=== PATIENT | male | born 1965 | race Caucasian/White ===

== ENCOUNTER 2021-10-05 11:35 | Outpatient (CLI) | payer BC, SELFPAY ==
[2021-10-05 17:25] LABS: Albumin* 4.4 g/dL (3.3-5.0); Chloride* 105 mmol/L (96-114)
[2021-10-05 17:26] LABS: Potassium* 4.2 mmol/L (3.6-5.1); Sodium* 138 mmol/L (135-149)
[2021-10-05 17:28] LABS: Cholesterol* 184 mg/dL (90-199); Creatinine* 0.9 mg/dL (0.5-1.5); Estimated Glomerular Filt Rate 100.86
[2021-10-05 17:29] LABS: Alanine Aminotransferase* 61 U/L (4-50); Alkaline Phosphatase* 103 U/L (40-150); Aspartate Amino Transferase* 53 U/L (12-35); Blood Urea Nitrogen* 20 mg/dL (7-30); Calcium* 8.9 mg/dL (8.4-10.6); Carbon Dioxide* 25 mmol/L (20-32); Glucose* 114 mg/dL (60-115); HDL Cholesterol* 41 mg/dL (>=40); LDL Cholesterol Calculated 99 mg/dL (<100); Total Protein* 6.9 g/dL (6.0-8.3); Triglycerides* 222 mg/dL (40-149)
== END 2021-10-05 11:36 | disposition home or self-care (01) ==
PROVIDERS: PCP Family Medicine; Visit Provider Family Medicine
DX: E66.9 Obesity, unspecified (principal); E78.5 Hyperlipidemia, unspecified; R00.2 Palpitations; M17.10 Unilateral primary osteoarthritis, unspecified knee; Z12.5 Encounter for screening for malignant neoplasm of prostate; Z13.0 Encounter for screening for diseases of the blood and blood-forming organs and certain disorders involving the immune mechanism; Z98.890 Other specified postprocedural states
CPT/HCPCS: 80053; 80061; 84153